=== PATIENT | male | born 1945 | race Caucasian/White ===

== ENCOUNTER 2018-12-23 16:07 | Emergency (ER) | payer MEDICARE, BC ==
--- NOTE | 2018-12-23 16:38 | EDM.PDOC ---
ED HPI GENERAL MEDICAL PROBLEM - General Chief Complaint: General Stated Complaint: weakness Time Seen by Provider: 12/23/18 16:10 Source of Information: Reports: Patient History Limitations: Reports: No Limitations - History of Present Illness INITIAL COMMENTS - FREE TEXT/NARRATIVE: Patient comes into the emergency department with complaints of a cough, sore throat, and weakness. Patient states that he felt like this a couple years ago and ended up being hospitalized for 4 days for complicated UTI. Patient states that he wanted to get evaluated prior to needing hospitalization. Patient denies any fever, chest pain, or nausea and vomiting. He states the cough, sore throat and weakness started about 4 days ago and is slowly progressively getting worse. He states that it increases "water pill" recently which is helped to remove some of the fluid on his lower extremities. He denies any pain currently. Cannot think of anything makes the symptoms worse or better. Denies taking any medications to help alleviate the symptoms. Onset: Gradual Duration: Improving Location: Reports: Other Quality: Reports: Other Severity: Mild Improves with: Reports: None Worsens with: Reports: None Context: Reports: Other Associated Symptoms: Reports: Other Throat Pain Score (Numeric/FACES): 3 - Related Data Allergies Allergy/AdvReac Type Severity Reaction Status Date / Time No Known Allergies Allergy Verified 12/23/18 16:09 Home Meds: Home Meds Doxazosin [Cardura] 8 mg PO DAILY 01/29/16 [History] Febuxostat [Uloric] 40 mg PO DAILY 01/29/16 [History] Furosemide 60 mg PO DAILY 01/29/16 [History] Hydrocodone/Acetaminophen [Hydrocodon-Acetaminophn 10-325] 1 each PO ASDIRECTED PRN 01/29/16 [History] Lisinopril [Prinivil] 5 mg PO DAILY 01/29/16 [History] Omeprazole 20 mg PO DAILY 01/29/16 [History] Pregabalin [Lyrica] 150 mg PO DAILY 01/29/16 [History] Simvastatin 20 mg PO DAILY 01/29/16 [History] traMADol [Ultram] 100 mg PO BID PRN 01/29/16 [History] Past Medical History Cardiovascular History: Reports: High Cholesterol, Hypertension Gastrointestinal History: Reports: GERD Genitourinary History: Reports: Diabetic Nephropathy Endocrine/Metabolic History: Reports: Diabetes, Type II Social & Family History - Tobacco Use Smoking Status *Q: Former Smoker Used Tobacco, but Quit: Yes Month/Year Tobacco Last Used: 1999 ED ROS GENERAL - Review of Systems Review Of Systems: ROS reveals no pertinent complaints other than HPI. Constitutional: Reports: Chills, Malaise, Weakness, Fatigue HEENT: Reports: No Symptoms Respiratory: Reports: Shortness of Breath (with activity ), Cough Cardiovascular: Reports: No Symptoms Endocrine: Reports: No Symptoms GI/Abdominal: Reports: No Symptoms : Reports: No Symptoms Musculoskeletal: Reports: No Symptoms Skin: Reports: No Symptoms Neurological: Reports: No Symptoms Psychiatric: Reports: No Symptoms Hematologic/Lymphatic: Reports: No Symptoms ED EXAM, GENERAL - Physical Exam Exam: See Below Exam Limited By: No Limitations General Appearance: Alert, WD/WN, No Apparent Distress Eye Exam: Bilateral Eye: EOMI, PERRL Ears: Normal External Exam, Normal Canal, Hearing Grossly Normal, Normal TMs Ear Exam: Bilateral Ear: Auricle Normal, Canal Normal, TM normal Nose: Normal Inspection, Normal Mucosa, No Blood Throat/Mouth: Normal Inspection, Normal Lips, Normal Teeth, Normal Gums, Normal Oropharynx, Normal Voice, No Airway Compromise Head: Atraumatic, Normocephalic Neck: Normal Inspection, Supple, Non-Tender, Full Range of Motion Respiratory/Chest: No Respiratory Distress, Lungs Clear, No Accessory Muscle Use , Chest Non-Tender, Decreased Breath Sounds Cardiovascular: Normal Peripheral Pulses, Regular Rate, Rhythm, No Edema GI/Abdominal: Normal Bowel Sounds, Soft, Non-Tender, No Distention, No Abnormal Bruit Back Exam: Normal Inspection, Full Range of Motion Extremities: Normal Inspection, Normal Range of Motion, Non-Tender, No Pedal Edema, Normal Capillary Refill Neurological: Alert, Oriented, CN II-XII Intact Psychiatric: Normal Affect, Normal Mood Skin Exam: Warm, Dry, Intact, Normal Color Course - Vital Signs Last Recorded V/S: Last Vital Signs Temp 37.4 C 12/23/18 16:12 Pulse 79 12/23/18 16:12 Resp 20 12/23/18 16:12 BP 154/66 H 12/23/18 16:12 Pulse Ox 98 12/23/18 16:12 - Orders/Labs/Meds Orders: Active Orders 24 hr Category Date Time Status CULTURE STREP A CONFIRMATION [RM] Stat Lab 12/23/18 16:46 Results STREP SCRN A RAPID W CULT CONF [RM] Stat Lab 12/23/18 16:46 Results Labs: Laboratory Tests 12/23/18 12/23/18 12/23/18 Range/Units 16:46 16:50 16:50 WBC 5.4 (4.0-10.0) x10^3/uL RBC 4.09 L (4.5-6.0) x10^6/uL Hgb 11.9 L D (14.0-18.0) g/dL Hct 36.4 L (40.0-52.0) % MCV 89.0 (78.0-93.0) fL MCH 29.1 (26.0-32.0) pg MCHC 32.7 (32.0-36.0) g/dL RDW Coeff of Tony 15.9 H (10.0-15.0) % Plt Count 120 L (130-400) x10^3/uL Add Manual Diff Yes Neutrophils % (Manual) 81 H (50-80) % Lymphocytes % (Manual) 9 L (25-50) % Monocytes % (Manual) 8 (2-11) % Eosinophils % (Manual) 2 (0-4) % Platelet Estimate Decreased L Giant Platelets Few H Anisocytosis 1+ slight H Sodium 138 (69-191) mmol/L Potassium 3.9 (1.5-9.9) mmol/L Chloride 100 (54-184) mmol/L Carbon Dioxide 27 (21-32) mmol/L Anion Gap 14.9 (10-20) mmol/L BUN 28 H (7-18) mg/dL Creatinine 2.0 H (0.70-1.30) mg/dL Est Cr Clr Drug Dosing TNP Estimated GFR (MDRD) 33 Glucose 171 H (74-106) mg/dL Lactic Acid (0.4-2.0) mmol/L Calcium 8.4 L (8.5-10.1) mg/dL Corrected Calcium 9.28 (8.5-10.1) mg/dL Total Bilirubin 0.8 (0.2-1.0) mg/dL AST 49 H (15-37) U/L ALT 105 H (16-63) U/L Alkaline Phosphatase 195 H (46-116) U/L Troponin I < 0.017 (<=0.056) ng/mL NT-Pro-B Natriuret Pep 188 H (<=125) pg/mL Total Protein 7.6 (6.4-8.2) g/dL Albumin 2.9 L (3.4-5.0) g/dL Globulin 4.7 Albumin/Globulin Ratio 0.62 Urine Color (YELLOW) Urine Appearance (CLEAR) Urine pH (5.0-8.0) Ur Specific Barnhart Urine Protein (NEGATIVE) mg/dL Urine Glucose (UA) (NEGATIVE) mg/dL Urine Ketones (NEGATIVE) mg/dL Urine Occult Blood (NEGATIVE) Urine Nitrite (NEGATIVE) Urine Bilirubin (NEGATIVE) Urine Urobilinogen (0.2) EU/dL Ur Leukocyte Esterase (NEGATIVE) Urine RBC (NOT SEEN) /HPF Urine WBC (NOT SEEN) /HPF Ur Squamous Epith Cells (NEGATIVE) /HPF Amorphous Sediment Urine Bacteria (NEGATIVE) /HPF Urine Mucus (NEGATIVE) /LPF 12/23/18 12/23/18 Range/Units 16:50 18:50 WBC (4.0-10.0) x10^3/uL RBC (4.5-6.0) x10^6/uL Hgb (14.0-18.0) g/dL Hct (40.0-52.0) % MCV (78.0-93.0) fL MCH (26.0-32.0) pg MCHC (32.0-36.0) g/dL RDW Coeff of Tony (10.0-15.0) % Plt Count (130-400) x10^3/uL Add Manual Diff Neutrophils % (Manual) (50-80) % Lymphocytes % (Manual) (25-50) % Monocytes % (Manual) (2-11) % Eosinophils % (Manual) (0-4) % Platelet Estimate Giant Platelets Anisocytosis Sodium (69-191) mmol/L Potassium (1.5-9.9) mmol/L Chloride (54-184) mmol/L Carbon Dioxide (21-32) mmol/L Anion Gap (10-20) mmol/L BUN (7-18) mg/dL Creatinine (0.70-1.30) mg/dL Est Cr Clr Drug Dosing Estimated GFR (MDRD) Glucose (74-106) mg/dL Lactic Acid 1.3 (0.4-2.0) mmol/L Calcium (8.5-10.1) mg/dL Corrected Calcium (8.5-10.1) mg/dL Total Bilirubin (0.2-1.0) mg/dL AST (15-37) U/L ALT (16-63) U/L Alkaline Phosphatase (46-116) U/L Troponin I (<=0.056) ng/mL NT-Pro-B Natriuret Pep (<=125) pg/mL Total Protein (6.4-8.2) g/dL Albumin (3.4-5.0) g/dL Globulin Albumin/Globulin Ratio Urine Color Dark yellow H (YELLOW) Urine Appearance Slightly cloudy H (CLEAR) Urine pH 5.5 (5.0-8.0) Ur Specific Barnhart 1.015 Urine Protein >=300 H (NEGATIVE) mg/dL Urine Glucose (UA) Negative (NEGATIVE) mg/dL Urine Ketones Negative (NEGATIVE) mg/dL Urine Occult Blood Negative (NEGATIVE) Urine Nitrite Negative (NEGATIVE) Urine Bilirubin Negative (NEGATIVE) Urine Urobilinogen 0.2 (0.2) EU/dL Ur Leukocyte Esterase Negative (NEGATIVE) Urine RBC 0-5 (NOT SEEN) /HPF Urine WBC 0-5 (NOT SEEN) /HPF Ur Squamous Epith Cells Rare (NEGATIVE) /HPF Amorphous Sediment Few Urine Bacteria Rare (NEGATIVE) /HPF Urine Mucus Rare H (NEGATIVE) /LPF - Re-Assessments/Exams Free Text/Narrative Re-Assessment/Exam: 12/23/18 19:18 Pt feels stable on his feet, is able to ambulate without assistance with his cane. states she feel he is safe for discharge. VSS pt alert and comfortable. Departure - Departure Time of Disposition: 19:15 Disposition: Home, Self-Care 01 Condition: Good Clinical Impression: Viral illness - Discharge Information *PRESCRIPTION DRUG MONITORING PROGRAM REVIEWED*: Not Applicable *COPY OF PRESCRIPTION DRUG MONITORING REPORT IN PATIENT JOCY: Not Applicable Instructions: Viral Illness, Adult Referrals: Luzmaria Oneal DO [Primary Care Provider] - Forms: ED Department Discharge Additional Instructions: 1. rest 2. increase your water intake 3. Can take Ibuprofen or Tylenol as needed for pain and discomfort and body aches 4. All labs and urinalysis were negative today 5. Symptoms continue Wednesday or Wednesday you are to follow-up with her primary care provider or reevaluation 6. Activity and diet as tolerated 7. Call with any questions or concerns - My Orders Last 24 Hours: My Active Orders 12/23/18 16:46 CULTURE STREP A CONFIRMATION [RM] Stat STREP SCRN A RAPID W CULT CONF [RM] Stat - Assessment/Plan Last 24 Hours: My Active Orders 12/23/18 16:46 CULTURE STREP A CONFIRMATION [RM] Stat STREP SCRN A RAPID W CULT CONF [RM] Stat Assessment:: 1. Viral illness 2. cough, fever, weakness, body ache Plan: 1. Labs completed in ER. 2 chest xray completed in ER 3. Rapid strep completed in ER. (negative) 4. Pt unable to provide UA-straight cath completed 5. All testing is negative. Pt and spouse feel he is safe to go home and rest. Education provided regarding: rest, diet, activity, OTC medications, and follow up 6. All questions and concerns addressed prior to discharge
[2018-12-23 17:26] LABS: ANION GAP 14.9 mmol/L (10-20); CHLORIDE,CL 100 mmol/L (54-184); SODIUM,NA 138 mmol/L (69-191)
--- NOTE | 2018-12-23 17:40 | CR ---
[id number] RAD/RAD Chest PA And Lateral EXAM: FRONTAL AND LATERAL CHEST INDICATION: SHORTNESS OF BREATH WITH ACTIVITY. COMPARISON: 04/19/2012. DISCUSSION: Cardiomegaly without evidence of congestive heart failure. Mild hypoinflation. No infiltrates are identified. IMPRESSION: 1. Cardiomegaly without current evidence of congestive heart failure. Barrington Mcwilliams MD 12/23/18 1738 Thank you for allowing us to participate in the care of your patient.
== END 2018-12-23 19:20 | disposition home or self-care (01) ==
LOC: VM.ED 16:07
DX: B34.9 Viral infection, unspecified (principal); I10 Essential (primary) hypertension; E78.00 Pure hypercholesterolemia, unspecified; E11.21 Type 2 diabetes mellitus with diabetic nephropathy; K21.9 Gastro-esophageal reflux disease without esophagitis; Z87.891 Personal history of nicotine dependence; Z79.899 Other long term (current) drug therapy
CPT/HCPCS: 36415; 71046; 80053; 81001; 83605; 83880; 84484; 85025; 87081; 87880-QW; 99283-GF; 99285-25